=== PATIENT | female | born 1950 | race Caucasian/White ===

== ENCOUNTER 2017-10-21 18:31 | Inpatient (IN) | payer MEDICARE, OTHER ==
[~2017-10-21] VITALS: Ht 162.6 cm; Wt 68.0 kg
[2017-10-21] MEDS ORDERED: SIMV10TA6 PO (18:48)
[2017-10-21] MEDS ORDERED: LORA0.5T PO (18:48)
[2017-10-21] MEDS ORDERED: VORT20TA PO (18:48)
[2017-10-21] MEDS ORDERED: [UNRECOGNIZED DRUG - REMARK] INH (18:48)
[2017-10-21] MEDS ORDERED: LISI40TA4 PO (18:48)
[2017-10-21] MEDS ORDERED: AMLO5TAB2 PO (18:48)
[2017-10-21] MEDS ORDERED: IBUP-1957 PO (18:48)
[2017-10-21 19:00] VITALS: BP 113/72
[2017-10-21 20:11] VITALS: BP 118/66
[2017-10-21] MEDS ORDERED: ACETAMINOPHEN 325 MG TABLET PO PRN (20:30)
[2017-10-21] MEDS ORDERED: MAGNESIUM HYDROXIDE 30 ML LIQUID UDC PO PRN (20:30)
[2017-10-21] MEDS ORDERED: MAG HYDROX/AL HYDROX/SIMETH 30 ML LIQUID UDC PO PRN (20:30)
[2017-10-21] MEDS: LORAZEPAM 0.5 MG TABLET PO PRN (21:26)
[2017-10-21] MEDS: SIMVASTATIN 10 MG TABLET PO SCH (21:26)
[2017-10-21] MEDS ORDERED: SIMVASTATIN 10 MG TABLET ONE (21:40)
[2017-10-21] MEDS: ZOLPIDEM 5 MG TABLET PO PRN (22:31)
[2017-10-22 07:10] LABS: BASOPHILS # (AUTO) 0.1 K/uL (0.0-8.0); BASOPHILS % (AUTO) 0.8 % (0.0-2.0); EOSINOPHILS # (AUTO) 0.2 K/uL (0.0-0.7); EOSINOPHILS % (AUTO) 2.6 % (0.0-7.0); HEMATOCRIT 38.2 % (37-47); LYMPHOCYTES # (AUTO) 1.7 K/UL (0.8-4.8); LYMPHOCYTES % (AUTO) 22.4 % (20.5-51.5); MEAN CORPUSCULAR HEMOGLOBIN 32.3 UUG (27.0-31.0); MEAN CORPUSCULAR HGB CONC 34 g/dL (32.0-37.0); MEAN CORPUSCULAR VOLUME 95.1 FL (81.0-99.0); MONOCYTES # (AUTO) 0.6 K/UL (0.1-1.30); NEUTROPHILS # (AUTO) 5.1 K/UL (1.8-8.9); NEUTROPHILS % (AUTO) 66.2 % (38.5-71.5); PLATELET COUNT (AUTO) 262 K/UL (150-450); RED BLOOD CELL COUNT(AUTO) 4.02 MIL/UL (4.2-5.4); WHITE BLOOD COUNT (AUTO) 7.7 K/UL (4.0-11.2)
[2017-10-22 07:30] VITALS: BP 150/72
[2017-10-22 07:39] LABS: BILIRUBIN,TOTAL 0.5 mg/dL (0.2-1.0); PHOSPHOROUS 3.7 mg/dL (2.5-4.9); POTASSIUM 4.1 mmol/L (3.5-5.1); TOTAL PROTEIN, SERUM 7.5 g/dL (6.4-8.2)
[2017-10-22 07:46] LABS: THYROID STIMULATING HORMONE 2.694 mIU/mL (0.358-3.740)
[2017-10-22] MEDS: ARIPIPRAZOLE 2 MG TABLET PO SCH ×2 (09:35→16:32)
[2017-10-22] MEDS: AMLODIPINE 5 MG TABLET PO SCH (09:35)
[2017-10-22] MEDS: VENLAFAXINE XR 75 MG CAP.SR.24H PO SCH (09:35)
[2017-10-22] MEDS: LISINOPRIL 20 MG TABLET PO SCH (09:35)
[2017-10-22] MEDS: NICOTINE 14 MG/24HR PATCH TD SCH (10:54)
[2017-10-22] MEDS ORDERED: PNEUMOCOCCAL 23-VAL P-SAC VAC 0.5 ML VIAL IM ONE (13:00)
[2017-10-22] MEDS: LORAZEPAM 0.5 MG TABLET PO PRN ×2 (13:25→20:10)
[2017-10-22 15:15] VITALS: BP 124/71
[2017-10-22] MEDS: IBUPROFEN 400 MG TABLET PO PRN (15:36)
[2017-10-22] MEDS: SIMVASTATIN 10 MG TABLET PO SCH (20:10)
[2017-10-22] MEDS: ZOLPIDEM 5 MG TABLET PO PRN (22:49)
[2017-10-22 23:05] LABS: *AMPHETAMINE, URINE NEGATIVE (NEGATIVE); *BARBITURATE, URINE NEGATIVE (NEGATIVE); *CANNABINOID, URINE NEGATIVE (NEGATIVE); *COCCAINE, URINE NEGATIVE (NEGATIVE); *OPIATE, URINE NEGATIVE (NEGATIVE); *PHENCYCLIDINE SCREEN,URINE NEGATIVE (NEGATIVE)
[2017-10-23 07:30] VITALS: BP 140/76
[2017-10-23] MEDS: ARIPIPRAZOLE 2 MG TABLET PO SCH ×2 (08:21→16:34)
[2017-10-23] MEDS: VENLAFAXINE XR 75 MG CAP.SR.24H PO SCH (08:22)
[2017-10-23] MEDS: NICOTINE 14 MG/24HR PATCH TD SCH (08:22)
[2017-10-23] MEDS: LISINOPRIL 20 MG TABLET PO SCH (08:22)
[2017-10-23] MEDS: AMLODIPINE 5 MG TABLET PO SCH (08:22)
[2017-10-23 11:08] LABS: *BILIRUBIN,URIN NEGATIVE (NEGATIVE); *BLOOD, URINE NEGATIVE (NEGATIVE); *CLARITY,URINE CLEAR (CLEAR); *COLOR,URINE YELLOW (YELLOW); *KETONES,URINE NEGATIVE (NEGATIVE); *PROTEIN,URINE NEGATIVE (NEGATIVE); *UROBILINOGEN,URINE 0.2 E.U./dl (NORMAL); LEUKOCYTE ESTERASE ,URINE TRACE (NEGATIVE); NITRITE, URINE NEGATIVE (NEGATIVE); UGLUCOSE NEGATIVE (NEGATIVE)
[2017-10-23] MEDS: IBUPROFEN 400 MG TABLET PO PRN (11:50)
[2017-10-23 11:52] LABS: BACTERIA,URINE FEW /HPF (NONE SEEN); RBC,URINE NONE SEEN /HPF (0-3); SQUAMOUS EPITHELIAL CELL,UR MANY /HPF (NONE SEEN)
[2017-10-23] MEDS: LORAZEPAM 0.5 MG TABLET PO PRN (14:14)
[2017-10-23] MEDS: CEPHALEXIN MONOHYDRATE 500 MG CAPSULE PO SCH ×2 (14:33→21:22)
[2017-10-23 15:00] VITALS: BP 128/79
[2017-10-23 20:13] VITALS: BP 136/70
[2017-10-23] MEDS: ZOLPIDEM 5 MG TABLET PO PRN (21:22)
[2017-10-23] MEDS: SIMVASTATIN 10 MG TABLET PO SCH (21:23)
[2017-10-23] MEDS ORDERED: ZOLPIDEM 5 MG TABLET ONE (21:32)
[2017-10-24] MEDS: CEPHALEXIN MONOHYDRATE 500 MG CAPSULE PO SCH ×3 (06:00→21:01)
[2017-10-24 07:30] VITALS: BP 152/77
[2017-10-24 08:13] LABS: BASOPHILS % (AUTO) 0.6 % (0.0-2.0); EOSINOPHILS # (AUTO) 0.2 K/uL (0.0-0.7); EOSINOPHILS % (AUTO) 2.2 % (0.0-7.0); HEMATOCRIT 37.5 % (37-47); HEMOGLOBIN 12.9 G/DL (12.0-16.0); LYMPHOCYTES # (AUTO) 1.8 K/UL (0.8-4.8); MEAN CORPUSCULAR HEMOGLOBIN 32.5 UUG (27.0-31.0); MEAN CORPUSCULAR HGB CONC 34 g/dL (32.0-37.0); MEAN CORPUSCULAR VOLUME 94.8 FL (81.0-99.0); MONOCYTES # (AUTO) 0.6 K/UL (0.1-1.30); MONOCYTES % (AUTO) 7.9 % (0.0-11.0); NEUTROPHILS # (AUTO) 5.3 K/UL (1.8-8.9); NEUTROPHILS % (AUTO) 66.3 % (38.5-71.5); PLATELET COUNT (AUTO) 263 K/UL (150-450); RED BLOOD CELL COUNT(AUTO) 3.95 MIL/UL (4.2-5.4); WHITE BLOOD COUNT (AUTO) 7.9 K/UL (4.0-11.2)
[2017-10-24 08:17] LABS: BILIRUBIN,TOTAL 0.5 mg/dL (0.2-1.0); CREATININE 0.9 mg/dL (0.6-1.3); MAGNESIUM 1.9 mg/dL (1.8-2.4); PHOSPHOROUS 3.7 mg/dL (2.5-4.9); TOTAL PROTEIN, SERUM 7.3 g/dL (6.4-8.2)
[2017-10-24] MEDS: VENLAFAXINE XR 75 MG CAP.SR.24H PO SCH (08:29)
[2017-10-24] MEDS: ARIPIPRAZOLE 2 MG TABLET PO SCH ×2 (08:29→16:07)
[2017-10-24] MEDS: NICOTINE 14 MG/24HR PATCH TD SCH (08:30)
[2017-10-24] MEDS: LISINOPRIL 20 MG TABLET PO SCH (08:30)
[2017-10-24] MEDS: AMLODIPINE 5 MG TABLET PO SCH (08:30)
[2017-10-24] MEDS: IBUPROFEN 400 MG TABLET PO PRN (10:01)
[2017-10-24] MEDS: CHOLECALCIFEROL 400 UNITS TABLET PO SCH (14:20)
[2017-10-24 15:00] VITALS: BP 128/80
[2017-10-24 20:04] VITALS: BP 109/54
[2017-10-24] MEDS: SIMVASTATIN 10 MG TABLET PO SCH (21:04)
[2017-10-24] MEDS: ZOLPIDEM 5 MG TABLET PO PRN (21:04)
[2017-10-25] MEDS: CEPHALEXIN MONOHYDRATE 500 MG CAPSULE PO SCH ×3 (06:24→21:14)
[2017-10-25 07:30] VITALS: BP 127/74
[2017-10-25] MEDS: ARIPIPRAZOLE 2 MG TABLET PO SCH ×2 (08:27→16:53)
[2017-10-25] MEDS: NICOTINE 14 MG/24HR PATCH TD SCH (08:27)
[2017-10-25] MEDS: AMLODIPINE 5 MG TABLET PO SCH (08:27)
[2017-10-25] MEDS: VENLAFAXINE XR 75 MG CAP.SR.24H PO SCH (08:28)
[2017-10-25] MEDS: CHOLECALCIFEROL 400 UNITS TABLET PO SCH (08:28)
[2017-10-25] MEDS: LISINOPRIL 20 MG TABLET PO SCH (08:28)
[2017-10-25] MEDS: LORAZEPAM 0.5 MG TABLET PO PRN (08:29)
[2017-10-25] MEDS: IBUPROFEN 400 MG TABLET PO PRN (10:52)
[2017-10-25 14:15] VITALS: BP 109/50
[2017-10-25 15:17] VITALS: BP 113/51
[2017-10-25] MEDS: SIMVASTATIN 10 MG TABLET PO SCH (20:11)
[2017-10-25 20:12] VITALS: BP 101/61
[2017-10-25] MEDS: ZOLPIDEM 5 MG TABLET PO PRN (21:33)
[2017-10-26] MEDS: CEPHALEXIN MONOHYDRATE 500 MG CAPSULE PO SCH (05:44)
[2017-10-26 07:30] VITALS: BP 135/77
[2017-10-26 08:28] LABS: BASOPHILS # (AUTO) 0.1 K/uL (0.0-8.0); BASOPHILS % (AUTO) 0.8 % (0.0-2.0); EOSINOPHILS # (AUTO) 0.1 K/uL (0.0-0.7); HEMATOCRIT 37.5 % (31.2-41.9); HEMOGLOBIN 13.1 g/dL (10.9-14.3); LYMPHOCYTES # (AUTO) 1.2 K/uL (20.0-40.0); LYMPHOCYTES % (AUTO) 17.1 % (20.5-51.5); MEAN CORPUSCULAR HEMOGLOBIN 33.3 uug (24.7-32.8); MEAN CORPUSCULAR HGB CONC 35 g/dL (32.3-35.6); MEAN CORPUSCULAR VOLUME 95.6 fL (75.5-95.3); MONOCYTES # (AUTO) 0.7 K/uL (2.0-10.0); MONOCYTES % (AUTO) 10.3 % (0.0-11.0); NEUTROPHILS % (AUTO) 69.8 % (38.5-71.5); PLATELET COUNT (AUTO) 227 K/uL (179-408); RED BLOOD CELL COUNT(AUTO) 3.92 MIL/uL (3.63-4.92); WHITE BLOOD COUNT (AUTO) 7.2 K/uL (3.8-11.8)
[2017-10-26 08:41] LABS: BILIRUBIN,TOTAL 0.5 mg/dL (0.2-1.0); POTASSIUM 4.1 mmol/L (3.5-5.1); TOTAL PROTEIN, SERUM 7.8 g/dL (6.4-8.2)
[2017-10-26] MEDS: LISINOPRIL 20 MG TABLET PO SCH (08:52)
[2017-10-26 08:53] VITALS: BP 135/77
[2017-10-26] MEDS: VENLAFAXINE XR 75 MG CAP.SR.24H PO SCH (08:53)
[2017-10-26] MEDS: CHOLECALCIFEROL 400 UNITS TABLET PO SCH (08:53)
[2017-10-26] MEDS: NICOTINE 14 MG/24HR PATCH TD SCH (08:53)
[2017-10-26] MEDS: ARIPIPRAZOLE 2 MG TABLET PO SCH (08:53)
[2017-10-26] MEDS: AMLODIPINE 5 MG TABLET PO SCH (08:53)
[2017-10-26] MEDS: IBUPROFEN 400 MG TABLET PO PRN (09:28)
[2017-10-26] MEDS: LORAZEPAM 0.5 MG TABLET PO PRN (10:54)
== END 2017-10-26 11:30 | disposition home or self-care (01) | DRG 885 ==
LOC: ER 18:32 → GPS 18:53
PROVIDERS: ADMIT Psychiatry & Neurology Psychiatry; ATTEND Internal Medicine
DX: F31.4 Bipolar disorder, current episode depressed, severe, without psychotic features (principal); E22.2 Syndrome of inappropriate secretion of antidiuretic hormone; N39.0 Urinary tract infection, site not specified; Z79.899 Other long term (current) drug therapy; T43.505A Adverse effect of unspecified antipsychotics and neuroleptics, initial encounter; Y92.89 Other specified places as the place of occurrence of the external cause; I10 Essential (primary) hypertension; F17.210 Nicotine dependence, cigarettes, uncomplicated; E55.9 Vitamin D deficiency, unspecified; M19.90 Unspecified osteoarthritis, unspecified site; F41.9 Anxiety disorder, unspecified
CPT/HCPCS: 36415; 80307; 82306; 83735; 84100; 84443; 85025; 87086; 90732; A4663

== ENCOUNTER 2017-10-30 17:31 | Inpatient (IN) | payer OTHER ==
[~2017-10-30] VITALS: Ht 162.6 cm; Wt 70.8 kg
[~2017-10-30 17:31] MED LIST: AMLO5TAB2 PO; IBUP-1957 PO; LISI40TA4 PO; LORA0.5T PO; SIMV10TA6 PO; [UNRECOGNIZED DRUG - REMARK] INH
[2017-10-30] MEDS ORDERED: VENL75TA4 PO (18:05)
[2017-10-30] MEDS ORDERED: ARIPIPRAZOLE 2 MG TABLET PO (18:05)
[2017-10-30] MEDS ORDERED: TRINTELLIX 20 MG TABLET PO (18:05)
--- NOTE | 2017-10-30 19:05 | NUR ---
Dr Garay into eval patient
[2017-10-30 19:07] LABS: BASOPHILS # (AUTO) 0.1 K/uL (0.0-8.0); BASOPHILS % (AUTO) 1.2 % (0.0-2.0); EOSINOPHILS # (AUTO) 0.2 K/uL (0.0-0.7); HEMATOCRIT 34.7 % (37-47); HEMOGLOBIN 11.9 G/DL (12.0-16.0); MEAN CORPUSCULAR HEMOGLOBIN 32.5 UUG (27.0-31.0); MEAN CORPUSCULAR HGB CONC 34 g/dL (32.0-37.0); MEAN CORPUSCULAR VOLUME 95.2 FL (81.0-99.0); MONOCYTES # (AUTO) 0.8 K/UL (0.1-1.30); MONOCYTES % (AUTO) 9.8 % (0.0-11.0); NEUTROPHILS # (AUTO) 5.5 K/UL (1.8-8.9); PLATELET COUNT (AUTO) 227 K/UL (150-450); RED BLOOD CELL COUNT(AUTO) 3.65 MIL/UL (4.2-5.4); WHITE BLOOD COUNT (AUTO) 8.6 K/UL (4.0-11.2)
[2017-10-30 19:20] LABS: CARBON DIOXIDE 26 mmol/L (21-32); CHLORIDE 93 mmol/L (98-107); CREATININE 0.9 mg/dL (0.6-1.3); GLUCOSE 84 mg/dL (74-106); POTASSIUM 4.2 mmol/L (3.5-5.1); UREA NITROGEN, BLOOD 20 mg/dL (7-18)
--- NOTE | 2017-10-30 19:26 | NUR ---
Received call from Mo (UTILITY WORKER ROLLER SHOP) who will evaluate the patient, ETA 30 min.
[2017-10-30 19:30] LABS: *BILIRUBIN,URIN NEGATIVE (NEGATIVE); *BLOOD, URINE Trace-intact (NEGATIVE); *CLARITY,URINE CLEAR (CLEAR); *COLOR,URINE YELLOW (YELLOW); *KETONES,URINE NEGATIVE (NEGATIVE); *PROTEIN,URINE NEGATIVE (NEGATIVE); *UROBILINOGEN,URINE 0.2 E.U./dl (NORMAL); LEUKOCYTE ESTERASE ,URINE NEGATIVE (NEGATIVE); NITRITE, URINE NEGATIVE (NEGATIVE); PH,URINE 5.5 (5.0-8.0); UGLUCOSE NEGATIVE (NEGATIVE)
[2017-10-30 19:39] LABS: ALANINE AMINOTRANSFERASE 19 U/L (14-59); ALKALINE PHOSPHATASE 89 U/L (50-136); ASPARTATE AMINOTRANSFERASE 18 U/L (15-37); BILIRUBIN,DIRECT 0.1 mg/dL (0.0-0.2); BILIRUBIN,TOTAL 0.3 mg/dL (0.2-1.0); TOTAL PROTEIN, SERUM 7.3 g/dL (6.4-8.2)
[2017-10-30 19:41] LABS: ETHANOL < 3 MG/DL (0-0)
[2017-10-30 19:43] LABS: ACETAMINOPHEN < 2.0 ug/mL (10-30)
[2017-10-30 19:58] LABS: *AMPHETAMINE, URINE NEGATIVE (NEGATIVE); *BARBITURATE, URINE NEGATIVE (NEGATIVE); *CANNABINOID, URINE NEGATIVE (NEGATIVE); *COCCAINE, URINE NEGATIVE (NEGATIVE); *OPIATE, URINE NEGATIVE (NEGATIVE); *PHENCYCLIDINE SCREEN,URINE NEGATIVE (NEGATIVE); SQUAMOUS EPITHELIAL CELL,UR MODERATE /HPF (NONE SEEN); WBC,URINE 0-3 /HPF (0-3)
--- NOTE | 2017-10-30 21:42 | NUR ---
Pt. admitted to GPS, under care of Dr. Garcia Belongs List completed
--- NOTE | 2017-10-30 21:45 | NUR ---
GPS: ADMITTED 67 YEAR OLD WHITE FEMALE FROM ER VIA W/C TO U ROOM [address] Bonilla FOR 5150 DTO. PATIENT VERBALIZED WANT TO CUT HER WRIST WITH KNIFE. V/S TAKEN. ASSISTED IN BED. AMBULATE WITH STEADY GAIT. DAUGHTER BRENDA NOTIFIED VIA PHONE PATIENT IS ADMITTED IN [facility] IN [place]. STATED THANK YOU. CONTINUE MONITORING FOR SAFETY.
[2017-10-30 22:00] VITALS: BP 156/82
[2017-10-30] MEDS ORDERED: MAG HYDROX/AL HYDROX/SIMETH 30 ML LIQUID UDC PO PRN (22:15)
[2017-10-30] MEDS ORDERED: MAGNESIUM HYDROXIDE 30 ML LIQUID UDC PO PRN (22:15)
[2017-10-30] MEDS ORDERED: TEMAZEPAM 7.5 MG CAPSULE ONE (23:11)
[2017-10-30] MEDS: TEMAZEPAM 7.5 MG CAPSULE PO PRN (23:21)
[2017-10-30 23:26] VITALS: BP 148/78
--- NOTE | 2017-10-31 06:27 | NUR ---
GPS: Remain calm and cooperative. Denied SI at this time. slept 4 hrs after restoril 7.5 mg po given last night. RESTING IN BED. NO BEHAVIOR PROBLEM NOTED.
[2017-10-31 07:30] VITALS: BP 141/85
[2017-10-31] MEDS ORDERED: Medication Not On Formulary EA (Lisinopril 40 MG) PO SCH (09:00)
[2017-10-31] MEDS: LISINOPRIL 20 MG TABLET PO SCH (09:27)
[2017-10-31] MEDS: AMLODIPINE 5 MG TABLET PO SCH (09:28)
[2017-10-31] MEDS: ACETAMINOPHEN 325 MG TABLET PO PRN (14:08)
[2017-10-31 15:00] VITALS: BP 117/74
[2017-10-31] MEDS: LORAZEPAM 0.5 MG TABLET PO PRN (18:19)
[2017-10-31 20:03] VITALS: BP 123/77
[2017-10-31] MEDS: SIMVASTATIN 10 MG TABLET PO SCH (20:09)
[2017-10-31] MEDS: ARIPIPRAZOLE 2 MG TABLET PO SCH (20:09)
[2017-10-31] MEDS: TEMAZEPAM 7.5 MG CAPSULE PO PRN (21:42)
--- NOTE | 2017-11-01 06:27 | NUR ---
gps: remain calm and cooperative with medication and care. slept 8 hrs through the night after restoril 7.5 mg po given. showered this morning. no behavior problem noted. continue plan of care.
[2017-11-01 07:30] VITALS: BP 112/72
[2017-11-01] MEDS: VENLAFAXINE XR 75 MG CAP.SR.24H PO SCH (08:18)
[2017-11-01] MEDS: ARIPIPRAZOLE 2 MG TABLET PO SCH ×2 (08:18→20:36)
[2017-11-01] MEDS: AMLODIPINE 5 MG TABLET PO SCH (08:19)
[2017-11-01] MEDS: LISINOPRIL 20 MG TABLET PO SCH (08:19)
[2017-11-01] MEDS: ACETAMINOPHEN 325 MG TABLET PO PRN (09:33)
[2017-11-01] MEDS: LORAZEPAM 0.5 MG TABLET PO PRN (13:10)
[2017-11-01] MEDS: IBUPROFEN 200 MG TABLET PO PRN (16:27)
[2017-11-01 16:36] VITALS: BP 115/74
[2017-11-01 20:00] VITALS: BP 130/72
[2017-11-01] MEDS: SIMVASTATIN 10 MG TABLET PO SCH (20:36)
[2017-11-01] MEDS: TEMAZEPAM 7.5 MG CAPSULE PO PRN (22:36)
[2017-11-02 07:11] LABS: BASOPHILS # (AUTO) 0.1 K/uL (0.0-8.0); BASOPHILS % (AUTO) 1.2 % (0.0-2.0); EOSINOPHILS # (AUTO) 0.2 K/uL (0.0-0.7); EOSINOPHILS % (AUTO) 2.9 % (0.0-7.0); HEMATOCRIT 36.1 % (31.2-41.9); HEMOGLOBIN 12.5 g/dL (10.9-14.3); LYMPHOCYTES # (AUTO) 1.5 K/uL (20.0-40.0); LYMPHOCYTES % (AUTO) 25.5 % (20.5-51.5); MEAN CORPUSCULAR HGB CONC 35 g/dL (32.3-35.6); MEAN CORPUSCULAR VOLUME 95.5 fL (75.5-95.3); MONOCYTES # (AUTO) 0.7 K/uL (2.0-10.0); MONOCYTES % (AUTO) 11.1 % (0.0-11.0); NEUTROPHILS # (AUTO) 3.5 K/uL (1.8-8.9); NEUTROPHILS % (AUTO) 59.3 % (38.5-71.5); PLATELET COUNT (AUTO) 200 K/uL (179-408); RED BLOOD CELL COUNT(AUTO) 3.78 MIL/uL (3.63-4.92); WHITE BLOOD COUNT (AUTO) 5.9 K/uL (3.8-11.8)
[2017-11-02 07:30] VITALS: BP 138/75
[2017-11-02 07:50] LABS: BILIRUBIN,TOTAL 0.5 mg/dL (0.2-1.0); CREATININE 0.9 mg/dL (0.6-1.3); MAGNESIUM 2.1 mg/dL (1.8-2.4); PHOSPHOROUS 4.2 mg/dL (2.5-4.9); TOTAL PROTEIN, SERUM 7.6 g/dL (6.4-8.2)
[2017-11-02] MEDS: VENLAFAXINE XR 75 MG CAP.SR.24H PO SCH (08:44)
[2017-11-02] MEDS: ARIPIPRAZOLE 2 MG TABLET PO SCH (08:45)
[2017-11-02] MEDS: LIDOCAINE 5% PATCH TD SCH (08:45)
[2017-11-02] MEDS: AMLODIPINE 5 MG TABLET PO SCH (08:45)
[2017-11-02] MEDS: LISINOPRIL 20 MG TABLET PO SCH (08:45)
[2017-11-02] MEDS ORDERED: ARIPIPRAZOLE 2 MG TABLET PO SCH (09:00)
--- NOTE | 2017-11-02 14:04 | NUR ---
I have reviewed this patient's psychosocial dated 10/23/17, and I can attest to the accuracy of the information therein. There have been no changes since her last assessment. Patient is alert and oriented x4. Pt is still depressed with a flat affect. Pt is cooperative, but somewhat guarded, and she does not want to speak much. Pt was placed on voluntary admission this morning by Dr. Jackson. Pt admits to current suicidal ideations with plan to break mirror from bedside table and cut her wrists. I alerted the after school program coordinator and bedside table was removed from patient's room. Pt denies hallucinations and stated that her sleep has been poor. Pt's judgment and impulse control are impaired, and her insight appears limited.
--- NOTE | 2017-11-02 14:10 | NUR ---
UR Note: Utility Inspector faxed clinicals to DWIGHT Perez at [facility] for authorization ([phone]). APPLE left voicemail for Chris ([phone]) stating that clinicals have been faxed. APPLE will follow-up.
[2017-11-02] MEDS: IBUPROFEN 200 MG TABLET PO PRN (14:26)
[2017-11-02] MEDS: LORAZEPAM 0.5 MG TABLET PO PRN (14:26)
[2017-11-02 16:46] VITALS: BP 130/76
[2017-11-02 19:45] VITALS: BP 122/71
[2017-11-02] MEDS: SIMVASTATIN 10 MG TABLET PO SCH (20:11)
[2017-11-02] MEDS: ARIPIPRAZOLE 5 MG TABLET PO SCH (20:11)
[2017-11-02] MEDS: TEMAZEPAM 7.5 MG CAPSULE PO PRN (22:16)
[2017-11-03 07:30] VITALS: BP 127/75
[2017-11-03] MEDS: VENLAFAXINE XR 75 MG CAP.SR.24H PO SCH (08:34)
[2017-11-03] MEDS: ARIPIPRAZOLE 5 MG TABLET PO SCH ×2 (08:34→20:04)
[2017-11-03] MEDS: NICOTINE 21 MG/24HR PATCH TD SCH (08:35)
[2017-11-03] MEDS: LIDOCAINE 5% PATCH TD SCH (08:35)
[2017-11-03] MEDS: LISINOPRIL 20 MG TABLET PO SCH (08:35)
[2017-11-03] MEDS: AMLODIPINE 5 MG TABLET PO SCH (08:35)
[2017-11-03] MEDS: IBUPROFEN 200 MG TABLET PO PRN ×2 (09:30→20:08)
[2017-11-03] MEDS: LORAZEPAM 0.5 MG TABLET PO PRN (13:01)
--- NOTE | 2017-11-03 14:19 | NUR ---
UR Note: Spoke with Game Designer Faye at [facility] ([phone]). Faxed most recent clinicals ([phone]) for further authorization. Game Designer asked to speak with Dr. Jackson re: DC date and pt current status. Gave message to Dr. Jackson. Pole Setter will follow-up.
[2017-11-03 16:57] VITALS: BP 127/62
[2017-11-03 20:00] VITALS: BP 114/71
[2017-11-03] MEDS: SIMVASTATIN 10 MG TABLET PO SCH (20:04)
[2017-11-03] MEDS: TEMAZEPAM 7.5 MG CAPSULE PO PRN (21:58)
--- NOTE | 2017-11-03 22:00 | NUR ---
Patient requested Po PRN medication for insomnia, Restoril 7.5 mg PO PRN was given for insomnia per patient request and nursing assessment. will continue to monitor.
--- NOTE | 2017-11-04 06:22 | NUR ---
PATIENT SLEPT FOR APPROX 6.30HRS THROUGH THE NIGHT. SHE CONTINUE WITH DEPRESSED MOOD. SHE IS COMPLIANT WITH PLAN OF CARE.
[2017-11-04 08:00] VITALS: BP 137/71
[2017-11-04] MEDS ORDERED: VENLAFAXINE XR 75 MG CAP.SR.24H PO SCH (09:00)
[2017-11-04] MEDS: NICOTINE 21 MG/24HR PATCH TD SCH (09:00)
[2017-11-04] MEDS: LIDOCAINE 5% PATCH TD SCH (09:00)
[2017-11-04] MEDS: ARIPIPRAZOLE 5 MG TABLET PO SCH ×2 (09:59→20:01)
[2017-11-04] MEDS: AMLODIPINE 5 MG TABLET PO SCH (10:00)
[2017-11-04] MEDS: LISINOPRIL 20 MG TABLET PO SCH (10:01)
[2017-11-04] MEDS: VENLAFAXINE XR 37.5 MG CAP.SR.24H PO SCH (10:06)
[2017-11-04] MEDS: IBUPROFEN 200 MG TABLET PO PRN ×2 (10:58→20:01)
--- NOTE | 2017-11-04 11:32 | NUR ---
UR Note: APPLE faxed clinicals to UR Diving Fisher Faye at [facility] ([phone]). Awaiting authorization. APPLE will follow-up. Addendum: 11/04/17 at 1414 by AMELIA CHIU Tracking number:[id number]
[2017-11-04 16:02] VITALS: BP 110/67
[2017-11-04] MEDS: SIMVASTATIN 10 MG TABLET PO SCH (20:01)
[2017-11-04 21:29] VITALS: BP 133/67
--- NOTE | 2017-11-04 21:55 | NUR ---
RECEIVED PATIENT IN THE DAYROOM, SHE CONTINUE WITH DEPRESSED MOOD AND VAGUE/PASSIVE SI. SHE DENIES HAVING A PLAN OR INTENT TO HARM SELF. PATIENT IS A/O X 3 IN NO DISTRESS. ABLE TO AMBULATE WITH STEADY GAIT AND MAKE HER NEEDS KNOW. PATIENT REQUESTED PAIN MEDICATION FOR BACK PAIN 03/09. MOTRIN 200MG PO PRN WAS GIVEN FOR PAIN. WILL CONTINUE TO MONITOR.
[2017-11-04] MEDS: TEMAZEPAM 7.5 MG CAPSULE PO PRN (23:29)
--- NOTE | 2017-11-04 23:59 | NUR ---
PER PATIENT REQUEST AND NURSE ASSESSMENT, TEMAZEPAM 7.5MG PO PRN WAS GIVEN FOR INSOMNIA. WILL MONITOR FOR EFFICACY
--- NOTE | 2017-11-05 06:58 | NUR ---
PATIENT SLEPT FOR APPROX 76.00HRS THROUGH THE NIGHT. SHE CONTINUE WITH DEPRESSED MOOD. SHE IS EASILY REDIRECTABLE. WILL CONTINUE TO MONITOR.
[2017-11-05 07:30] VITALS: BP 129/73
[2017-11-05] MEDS: LISINOPRIL 20 MG TABLET PO SCH (08:23)
[2017-11-05] MEDS: AMLODIPINE 5 MG TABLET PO SCH (08:24)
[2017-11-05] MEDS: VENLAFAXINE XR 37.5 MG CAP.SR.24H PO SCH (08:24)
[2017-11-05] MEDS: ARIPIPRAZOLE 5 MG TABLET PO SCH ×2 (08:24→20:29)
[2017-11-05] MEDS: NICOTINE 21 MG/24HR PATCH TD SCH (08:28)
[2017-11-05] MEDS: LIDOCAINE 5% PATCH TD SCH (08:28)
[2017-11-05] MEDS: LORAZEPAM 0.5 MG TABLET PO PRN (11:34)
[2017-11-05] MEDS: IBUPROFEN 200 MG TABLET PO PRN ×2 (12:27→20:29)
--- NOTE | 2017-11-05 13:03 | NUR ---
Gps/Pick Up Man- Dr Carpio was in to see patient, informed concerned regarding right middle finger bump/cyst, claimed she feels pain/discomfort over the site, motrim 1 tab. was given po. with min.results, warm compresses was recommended per MD.,but patient claimed it does not help much.
--- NOTE | 2017-11-05 14:28 | NUR ---
UR Note: Faxed clinicals to Industrial Cook Faye at [facility] ([phone]). Awaiting Authorization. Tracking number: [id number]. SW will follow-up.
[2017-11-05 15:18] VITALS: BP 103/50
--- NOTE | 2017-11-05 20:00 | NUR ---
PT RECEIVED IN THE DAY ROOM, CONSTANTLY ASKING FOR HER BEDTIME MEDS, C/O RIGHT KNEE PAIN OF 6/10,MEDICATED ORDERED, WILL CONTINUE TO MONITOR CLOSELY.
[2017-11-05] MEDS: SIMVASTATIN 10 MG TABLET PO SCH (20:29)
[2017-11-05 21:35] VITALS: BP 127/69
[2017-11-05] MEDS: TEMAZEPAM 7.5 MG CAPSULE PO PRN (21:55)
[2017-11-06 07:30] VITALS: BP 153/74
--- NOTE | 2017-11-06 08:07 | NUR ---
DC Note: Patient will be discharged home with her [[id number] [place] [address]] via private transportation at 11am. Spoke with pt's daughter, Patria ([phone]) and , Matias ([phone]) who are willing to provide transportation and are agreeable with plan. Patient is aware and agreeable with plan. Patient will follow-up with her outpatient Primary Care Physician Dr. Raymundo [ ] and her outpatient Psychiatrist Dr. Hunter [[address], [address] [place] [address]; ]. Spoke with TRACY Mathis at [facility], and pt has a scheduled appointment with him on Friday, November 10, 2017 at 1pm [[address], [address] [place] [address]; ([phone])]. Pt will also follow-up with her outpatient POLICE ACADEMY INSTRUCTOR Maria Del Rosario Tompkins [[address], [place] [address]; ]. For smoking cessation, patient was referred to [employer] [phone]-LUNGUSA and [employer] [phone].
[2017-11-06] MEDS: VENLAFAXINE XR 37.5 MG CAP.SR.24H PO SCH (08:23)
[2017-11-06 08:24] VITALS: BP 153/74
[2017-11-06] MEDS: LIDOCAINE 5% PATCH TD SCH (08:24)
[2017-11-06] MEDS: LISINOPRIL 20 MG TABLET PO SCH (08:24)
[2017-11-06] MEDS: AMLODIPINE 5 MG TABLET PO SCH (08:24)
[2017-11-06] MEDS: NICOTINE 21 MG/24HR PATCH TD SCH (08:24)
[2017-11-06] MEDS: ARIPIPRAZOLE 5 MG TABLET PO SCH (08:24)
--- NOTE | 2017-11-06 11:00 | NUR ---
Gps/Artificial Stone Setter- Per patient and claimed she has most of her medications , except psych.meds. She uses [facility] pharmacy in [place], [place]. [phone].
--- NOTE | 2017-11-06 11:00 | NUR ---
Gps/Special Officer Automat-Patient 's Matias in to sheepskin pickler patient, reviewed medications/prescriptions, diet, safety follow up with her Psychiatrist and Medical Doctor,both verbalized understanding. Denies pain, no discomfort, in good spirit. All belongings given back to patient. Discharged to home via private car, accompanied by her .
== END 2017-11-06 11:00 | disposition home or self-care (01) | DRG 885 ==
LOC: ER 17:32 → GPS 21:05
PROVIDERS: ADMIT Psychiatry & Neurology Psychiatry; ATTEND Internal Medicine
DX: F33.2 Major depressive disorder, recurrent severe without psychotic features (principal); E22.2 Syndrome of inappropriate secretion of antidiuretic hormone; F17.210 Nicotine dependence, cigarettes, uncomplicated; I10 Essential (primary) hypertension; G89.29 Other chronic pain; Z79.899 Other long term (current) drug therapy; M19.90 Unspecified osteoarthritis, unspecified site; F41.9 Anxiety disorder, unspecified
CPT/HCPCS: 36415; 71010; 80307; 83735; 84100; 84300; 85025; 93005; A4663; G0480; G0480-TC

== ENCOUNTER 2017-12-05 12:47 | Emergency (ER) | payer OTHER ==
[~2017-12-05] VITALS: Ht 162.6 cm; Wt 64.4 kg
[~2017-12-05 12:47] MED LIST changes: -LORA0.5T PO; -[UNRECOGNIZED DRUG - REMARK] INH
[2017-12-05] MEDS ORDERED: LORA1TAB PO (13:01)
[2017-12-05] MEDS ORDERED: ARIP2TAB3 PO (13:01)
[2017-12-05] MEDS ORDERED: TRINTELLIX (13:01)
[2017-12-05 13:38] LABS: BASOPHILS % (AUTO) 0.2 % (0.0-2.0); EOSINOPHILS % (AUTO) 0.1 % (0.0-7.0); HEMATOCRIT 39.2 % (31.2-41.9); HEMOGLOBIN 13.7 g/dL (10.9-14.3); LYMPHOCYTES # (AUTO) 1.7 K/uL (20.0-40.0); LYMPHOCYTES % (AUTO) 15.2 % (20.5-51.5); MEAN CORPUSCULAR HEMOGLOBIN 33.1 uug (24.7-32.8); MEAN CORPUSCULAR HGB CONC 35 g/dL (32.3-35.6); MEAN CORPUSCULAR VOLUME 95.1 fL (75.5-95.3); MONOCYTES # (AUTO) 0.8 K/uL (2.0-10.0); MONOCYTES % (AUTO) 7.1 % (0.0-11.0); NEUTROPHILS # (AUTO) 8.6 K/uL (1.8-8.9); NEUTROPHILS % (AUTO) 77.4 % (38.5-71.5); PLATELET COUNT (AUTO) 257 K/uL (179-408); RED BLOOD CELL COUNT(AUTO) 4.12 MIL/uL (3.63-4.92); WHITE BLOOD COUNT (AUTO) 11.1 K/uL (3.8-11.8)
[2017-12-05 13:45] LABS: *BILIRUBIN,URIN NEGATIVE (NEGATIVE); *BLOOD, URINE 2+ (NEGATIVE); *CLARITY,URINE SLIGHTLY CLOUDY (CLEAR); *COLOR,URINE YELLOW (YELLOW); *KETONES,URINE TRACE (NEGATIVE); *PROTEIN,URINE 2+ (NEGATIVE); *UROBILINOGEN,URINE 0.2 E.U./dl (NORMAL); LEUKOCYTE ESTERASE ,URINE TRACE (NEGATIVE); NITRITE, URINE NEGATIVE (NEGATIVE); UGLUCOSE NEGATIVE (NEGATIVE)
[2017-12-05 13:51] LABS: ETHANOL < 3 MG/DL (0-0)
[2017-12-05 13:52] LABS: CARBON DIOXIDE 26 mmol/L (21-32); CHLORIDE 99 mmol/L (98-107); CREATININE 1.1 mg/dL (0.6-1.3); GLUCOSE 90 mg/dL (74-106); POTASSIUM 3.8 mmol/L (3.5-5.1); UREA NITROGEN, BLOOD 20 mg/dL (7-18)
[2017-12-05 13:57] LABS: ALANINE AMINOTRANSFERASE 21 U/L (14-59); ALKALINE PHOSPHATASE 119 U/L (50-136); ASPARTATE AMINOTRANSFERASE 19 U/L (15-37); BILIRUBIN,DIRECT 0.1 mg/dL (0.0-0.2); BILIRUBIN,TOTAL 0.5 mg/dL (0.2-1.0); TOTAL PROTEIN, SERUM 8.3 g/dL (6.4-8.2)
--- NOTE | 2017-12-05 13:58 | NUR ---
Lunch tray was offered, patient is calm, cooperative, pending results and disposition.
[2017-12-05 13:59] LABS: *AMPHETAMINE, URINE NEGATIVE (NEGATIVE); *BARBITURATE, URINE NEGATIVE (NEGATIVE); *CANNABINOID, URINE NEGATIVE (NEGATIVE); *COCCAINE, URINE NEGATIVE (NEGATIVE); *OPIATE, URINE NEGATIVE (NEGATIVE); *PHENCYCLIDINE SCREEN,URINE NEGATIVE (NEGATIVE)
[2017-12-05 14:02] LABS: BACTERIA,URINE FEW /HPF (NONE SEEN)
[2017-12-05 14:03] LABS: SQUAMOUS EPITHELIAL CELL,UR MANY /HPF (NONE SEEN)
[2017-12-05 14:09] LABS: ACETAMINOPHEN < 2.0 ug/mL (10-30)
--- NOTE | 2017-12-05 14:57 | NUR ---
Patient is resting comfortably on gurney and patient expressed willingness to wait in our ER department for the psych behavioral health worker.
--- NOTE | 2017-12-05 16:27 | NUR ---
Vashti is now here in ER & evaluating this patient.
--- NOTE | 2017-12-05 17:50 | NUR ---
Patient is for discharge. Patient's spouse will come to our ER in approx 1845 to tile picker the patient.
--- NOTE | 2017-12-05 18:40 | NUR ---
Patient discharged to home in stable conditon. Written and verbal after care instructions given to patient's spouse. Patient and spouse verbalized understanding of instructions.
== END 2017-12-05 18:44 | disposition home or self-care (01) ==
LOC: ER 12:47
DX: F32.9 Major depressive disorder, single episode, unspecified (principal); I10 Essential (primary) hypertension; F17.200 Nicotine dependence, unspecified, uncomplicated; Z88.8 Allergy status to other drugs, medicaments and biological substances; Z90.49 Acquired absence of other specified parts of digestive tract
CPT/HCPCS: 36415; 80307; 85025; A4663; G0480; G0480-TC